=== PATIENT | female | born 1955 | race Caucasian/White ===

== ENCOUNTER 2016-11-20 16:49 | Observation (INO) | payer BC ==
--- NOTE | 2016-11-20 17:04 | ED PDOC ---
HPI:STROKE - Time Time: 17:02 - Historian Historian: Patient - Chief Complaint Chief Complaint: Numbness (Left side of face started this AM at 10. No peripheral weakness. Also c/o left arm numbness. Denies chest pain.) - Onset Date: 11/20/16 Time: 10:00 Onset: Hours (7) - Timing Timing: Currently Symptomatic - Location Locate left: Face - Radiation Radiation: None - Severity of pain Maximum severity:: Mild Pain Scale:: 0 Severity Current: Mild Pain Scale:: 0 - Exacerbated by Exacerbated by:: Nothing - Relieved by Relieved by:: Nothing - TPA Positive for Contraindication: No Reason tPA is not being Administered: Sxs 7 hrs with improvement in left arm numbness NIHSS Stroke Scale - How Severe is the Stroke Level of Consciousness: 0=Alert LOC to Questions: 0=Both comments correct LOC to commands: 0=Obeys both correctly Best Gaze: 0=Normal Visual: 0=No visual loss Facial: 0=Normal Motor Arm - Left: 0=No drift Motor Arm - Right: 0=No drift Motor Leg - Left: 0=No drift Motor Leg - Right: 0=No drift Limb Ataxia: 0=Absent Sensory: 1=Mild to moderate loss Best Language: 0=No aphasia Dysarthia: 0=Normal articulation Extinction & Inattention (Neglect): 0=Normal, no object Score: 1 rTPA Inclusion/Exclusion - Refusal of Treatment Patient Refused Treatment: No - Inclusion Criteria for Altepase Patient is 18 years or Older: Yes The Clinical Diagnosis of Ischemic Stroke That is Causing a Potentially Disabling Neurological Deficit: No Time of Onset is Well Established to be Less Than 270 Minute Before Treatment Would Begin: No Risk/Benefit Discussed With Patient/Family Member Present: No Past Medical History Vital Signs: Last Vital Signs Temp 98.2 F 11/20/16 16:51 Pulse 81 11/20/16 16:51 Resp 16 11/20/16 16:51 BP 150/93 H 11/20/16 16:51 Pulse Ox 100 11/20/16 16:51 - Medical History PMH: No Chronic Diseases - Family History Family History: States: Unknown Family Hx - Immunization History Hx Tetanus Toxoid Vaccination: No Hx Influenza Vaccination: No Hx Pneumococcal Vaccination: No - Home Medications Home Medications: Ambulatory Orders Medication Instructions Recorded No Known Home Med 08/03/15 - Allergies Allergies/Adverse Reactions: Allergies Allergy/AdvReac Type Severity Reaction Status Date / Time No Known Allergies Allergy Verified 08/03/15 09:58 Review of Systems ROS Statement: Except As Marked, All Systems Reviewed And Found Negative Neurological: Positive for: Numbness (Left facial and left arm) Physical Exam - Reviewed Nursing Documentation Reviewed: Yes Vital Signs Reviewed: Yes - Physical Exam Appears: Positive for: Non-toxic, No Acute Distress Head Exam: Positive for: ATRAUMATIC, NORMAL INSPECTION, NORMOCEPHALIC Skin: Positive for: Normal Color, Warm, DRY Eye Exam: Positive for: EOMI, Normal appearance, PERRL ENT: Positive for: Normal ENT Inspection Neck: Positive for: Normal, Painless ROM Cardiovascular/Chest: Positive for: Regular Rate, Rhythm Respiratory: Positive for: CNT, Normal Breath Sounds Gastrointestinal/Abdominal: Positive for: Normal Exam, Bowel Sounds, Soft Back: Positive for: Normal Inspection Extremity: Positive for: Normal ROM Neurologic/Psych: Positive for: Alert, Oriented, Motor/Sensory Deficits (mild decreased sensation left side of face. No motor deficits) - Laboratory Results Result Diagrams: 11/20/16 17:15 11/20/16 17:15 - ECG O2 Sat by Pulse Oximetry: 100 Disposition - Clinical Impression Clinical Impression: Transient cerebral ischemia - Patient ED Disposition Is Patient to be Admitted: Yes - Disposition Disposition Time: 18:03 Condition: FAIR - Pt Status Changed To: Hospital Disposition Of: Observation - POA Present On Arrival: None
--- NOTE | 2016-11-20 17:26 | CT ---
PROCEDURE: CT HEAD WITHOUT CONTRAST. HISTORY: code stroke COMPARISON: None available. TECHNIQUE: Axial computed tomography images were obtained through the head/brain without intravenous contrast. Coronal and sagittal reconstructed images. Radiation dose: Total exam DLP = 763.08 MGy-cm. This CT exam was performed using one or more of the following dose reduction techniques: Automated exposure control, adjustment of the mA and/or kV according to patient size, and/or use of iterative reconstruction technique. FINDINGS: HEMORRHAGE: No intracranial hemorrhage. BRAIN: No mass effect or edema. No atrophy or chronic microvascular ischemic changes. VENTRICLES: Unremarkable. No hydrocephalus. CALVARIUM: Unremarkable. PARANASAL SINUSES: Unremarkable as visualized. No significant inflammatory changes. MASTOID AIR CELLS: Unremarkable as visualized. No inflammatory changes. OTHER FINDINGS: None. IMPRESSION: No acute intracranial abnormalities. No significant findings to account for the clinical presentation. Code stroke protocol: Study completed 17:08. Radiologist notified 17:21. Results conveyed verbally at 17:24. Discussed directly with Dr. Burgess attending physician in the emergency department. Interpretation finalized and available for review 17:25. November 20, 2016.
[2016-11-20 17:28] LABS: BASO % 0.7 % (0.0-2.0); EOS % 0.4 % (0.0-4.0); HEMATOCRIT 40.3 % (34.0-47.0); LYMPH # 1.1 K/uL (1.0-4.3); LYMPH % 26.1 % (20.0-40.0); MEAN CELL VOLUME 88.4 fl (81.0-99.0); MEAN CORPUSCULAR HEMOGLOBIN 29.5 pg (27.0-31.0); MEAN CORPUSCULAR HGB CONC 33.3 g/dL (33.0-37.0); MEAN PLATELET VOLUME 7.3 fl (7.2-11.7); MONO # 0.3 K/uL (0.0-0.8); MONO % 7.7 % (0.0-10.0); NEUT # 2.7 K/uL (1.8-7.0); NEUT % 65.1 % (50.0-75.0); RED CELL DISTRIBUTION WIDTH 12.7 % (11.5-14.5); WHITE BLOOD COUNT 4.2 K/uL (4.8-10.8)
[2016-11-20 17:40] LABS: ALB/GLOB RATIO 1.4 (1.0-2.1); ALKALINE PHOSPHATASE 67 U/L (38-126); ALT/SGPT 21 U/L (9-52); AST/SGOT 29 U/L (14-36); BILIRUBIN,TOTAL 0.6 mg/dl (0.2-1.3); BLOOD UREA NITROGEN 10 mg/dl (7-17); CALCIUM 9.4 mg/dL (8.4-10.2); CARBON DIOXIDE 22 mmol/L (22-30); CHLORIDE 104 mmol/L (98-107); CHOLESTEROL 224 mg/dL (0-199); GFR AFRICAN-AMERICAN > 60; GLUCOSE,RANDOM 111 mg/dL (65-105); POTASSIUM 3.9 MMOL/L (3.6-5.0); SODIUM 143 mmol/l (132-148); TOTAL PROTEIN 7.8 G/DL (6.3-8.2)
[2016-11-20 17:47] LABS: PARTIAL THROMBOPLASTIN TIME 28.5 SECONDS (23.3-32.5)
[2016-11-21 07:18] LABS: CHOLESTEROL 219 mg/dL (0-199)
--- NOTE | 2016-11-21 10:22 | RAD ---
HISTORY: cva COMPARISON: No prior. FINDINGS: LUNGS: No active pulmonary disease. PLEURA: No significant pleural effusion identified, no pneumothorax apparent. CARDIOVASCULAR: Normal. OSSEOUS STRUCTURES: No significant abnormalities. VISUALIZED UPPER ABDOMEN: Normal. OTHER FINDINGS: None. IMPRESSION: No active disease.
--- NOTE | 2016-11-21 11:31 | MRI ---
PROCEDURE: MRI BRAIN WITHOUT CONTRAST HISTORY: TIA COMPARISON: None. TECHNIQUE: Multiplanar, multisequence MR images of the brain were obtained without intravenous contrast enhancement. FINDINGS: HEMORRHAGE: None DWI: No evidence of an acute or early subacute infarction. BRAIN PARENCHYMA: No mass effect or edema. No atrophy or chronic microvascular ischemic changes. VENTRICLES: Unremarkable. No hydrocephalus. CRANIUM: Unremarkable. ORBITS: Grossly unremarkable. PARANASAL SINUSES/MASTOIDS: Clear VASCULAR SYSTEM: Skull base flow voids intact. OTHER FINDINGS: None. IMPRESSION: Unremarkable non contrast enhanced MRI of the brain.
--- NOTE | 2016-11-21 11:46 | MRI ---
PROCEDURE: Magnetic Resonance Angiography Brain HISTORY: tia COMPARISON: None available. TECHNIQUE: 3D time of flight MR angiography of the intracranial arteries was performed. Rotating maximum intensity projection images were generated. FINDINGS: INTERNAL CEREBRAL ARTERIES: Unremarkable. The skull base, petrous, cavernous and supraclinoid segments are bilaterally widely patient. ANTERIOR CEREBRAL ARTERIES: Unremarkable. A1 and A2 segments are widely patent. Smaller distal branches unremarkable, as visualized. MIDDLE CEREBRAL ARTERIES: Unremarkable. M1 and M2 segments are widely patent. Perisylvian branches grossly symmetric. POSTERIOR CIRCULATION: Basilar Artery: Unremarkable. Distal Vertebral Arteries: Unremarkable. Posterior Cerebral Arteries: Unremarkable. Posterior Inferior Cerebellar Arteries: Unremarkable. ANEURYSM/ VASCULAR MALFORMATIONS: None. OTHER FINDINGS: None. IMPRESSION: Unremarkable MR angiography of the brain.
--- NOTE | 2016-11-21 15:32 | CP.PCM.CON ---
History of Present Illness - History of Present Illness History of Present Illness: Mrs. Amador is a 61-year-old woman who states that she was told when she was younger that she has an abnormal heart rhythm, but no other medical problems, who presented to the ED yesterday afternoon after complaints of left face and arm numbness that started around lunch time and resolved within a few hours. The numbness on the left side of the face started after her arms had a strange "tingly" and cold feeling. Initially, it was both arms, but then it moved to predominantly the left arm throughout. She also had a feeling of nausea at the time. She denied any headache, visual changes, chest pain, weakness, muscle pain or tenderness, difficulty with ambulation, abdominal pain or changes in mood. Review of Systems - Review of Systems All systems: reviewed and no additional remarkable complaints except Past Patient History - Past Medical History & Family History Past Medical History?: Yes - Past Social History Smoking Status: Former Smoker - CARDIAC Hx Cardiac Disorders: No - PULMONARY Hx Respiratory Disorders: No - NEUROLOGICAL Hx Neurological Disorder: No - HEENT Hx HEENT Problems: No - RENAL Hx Chronic Kidney Disease: No - ENDOCRINE/METABOLIC Hx Endocrine Disorders: No - HEMATOLOGICAL/ONCOLOGICAL Hx Blood Disorders: No - INTEGUMENTARY Hx Dermatological Problems: No - MUSCULOSKELETAL/RHEUMATOLOGICAL Hx Musculoskeletal Disorders: No Hx Falls: No - GASTROINTESTINAL Hx Gastrointestinal Disorders: No - GENITOURINARY/GYNECOLOGICAL Hx Genitourinary Disorders: No - PSYCHIATRIC Hx Psychophysiologic Disorder: No Hx Substance Use: No - SURGICAL HISTORY Hx Surgeries: Yes Other/Comment: left breast cyst removal - ANESTHESIA Hx Anesthesia: Yes Hx Anesthesia Reactions: No Hx Malignant Hyperthermia: No Has any member of the family had a problem w/ anesthesia?: No Meds Allergies/Adverse Reactions: Allergies Allergy/AdvReac Type Severity Reaction Status Date / Time No Known Allergies Allergy Verified 08/03/15 09:58 - Medications Medications: Current Medications Acetaminophen (Tylenol 325mg Tab) 650 mg PO Q6 PRN PRN Reason: Pain, moderate (4-7) Last Admin: 11/20/16 20:30 Dose: 650 mg Aspirin (Aspirin) 325 mg PO DAILY LALITHA Last Admin: 11/21/16 08:39 Dose: 325 mg Physical Exam - Constitutional Appears: Well - Head Exam Head Exam: ATRAUMATIC, NORMAL INSPECTION, NORMOCEPHALIC - Eye Exam Eye Exam: EOMI, Normal appearance, PERRL - ENT Exam ENT Exam: Mucous Membranes Moist, Normal Exam - Respiratory Exam Respiratory Exam: Clear to Auscultation Bilateral, NORMAL BREATHING PATTERN - Cardiovascular Exam Cardiovascular Exam: REGULAR RHYTHM - GI/Abdominal Exam GI & Abdominal Exam: Normal Bowel Sounds, Soft. absent: Tenderness - Neurological Exam Neurological exam: Alert, CN II-XII Intact, Normal Gait, Oriented x3, Reflexes Normal - Expanded Neurological Exam Expanded Patient oriented to: person, place, time Cranial nerves: EOM's Intact: Normal, Facial Palsey w/Forehead Movement: Normal , Facial Palsey w/o Forehead Movement: Normal, Nystagmus: Normal Cerebellar Function: Finger to Nose: Normal, Heel to Huff: Normal, Romberg: Normal Upper motor neuron: Babinski Sign: Normal Sensory exam: Lower Extremity 2 Point Discrimination: Normal, Lower Extremity Light Touch: Normal, Lower Extremity Pin Prick: Normal, Lower Extremity Temperature: Normal, Upper Extremity 2 Point Discrimination: Normal, Upper Extremity Light Touch: Normal, Upper Extremity Pin Prick: Normal, Upper Extremity Temperature: Normal Neuro motor strength exam: Left Upper Extremity: 5, Right Upper Extremity: 5, Left Lower Extremity: 5, Right Lower Extremity: 5 DTR: Achilles Tendon Left: 2+, Achilles Tendon Right: 2+, Bicep Left: 2+, Bicep Right: 2+, Brachioradialis Left: 2+, Brachioradialis Right: 2+, Patellar Left: 2 +, Patellar Right: 2+, Tricep Left: 2+, Tricep Right: 2+ - Psychiatric Exam Psychiatric exam: Normal Affect, Normal Mood Results - Vital Signs Recent Vital Signs: Last Vital Signs Temp 97.5 F L 11/21/16 12:24 Pulse 68 11/21/16 12:24 Resp 18 11/21/16 12:24 BP 130/77 11/21/16 12:24 Pulse Ox 99 11/21/16 12:24 - Labs Result Diagrams: 11/20/16 17:15 11/20/16 17:15 Labs: Laboratory Results - last 24 hr 11/20/16 11/20/16 11/21/16 18:39 21:00 06:25 Hemoglobin A1c 5.9 Triglycerides 67 Cholesterol 219 H LDL Cholesterol Direct 103 HDL Cholesterol 72 H Blood Type Confirm B POSITIVE - Imaging and Cardiology MRI - head Status: Image reviewed by me, Report reviewed by me (Mild scattered T2 hyperintensities, no acute findings. ) Assessment & Plan (1) TIA (transient ischemic attack) Assessment and Plan: The patient is a 61-year-old woman who developed the sudden onset of left arm and face numbness lasting several hours that now completely resolved. Will continue the TIA work-up, start aspirin 81 mg daily, statin and I recommend: 1. Telemetrey 2. Carotid Doppler 3. Permissive hypertension for 1st 24-36 hours 4. Echocardiogram with bubble study 5. DVT Px 6. PT/OT eval. Status: Acute
--- NOTE | 2016-11-21 19:55 | CARD ---
APPROVED REPORT EXAM: Two-dimensional and M-mode echocardiogram with Doppler and color Doppler. Other Information Quality : GoodRhythm : NSR INDICATION CVA/TIA 2D DIMENSIONS IVSd1.00 (0.7-1.1cm)LVDd3.65 (3.9-5.9cm) PWd0.91 (0.7-1.1cm)IVSs1.30 (0.8-1.2cm) LVDs2.07 (2.5-4.0cm)FS (%) 43.3 % PWs1.14 (0.8-1.2cm)LVEF (%)55.0 (>50%) M-Mode DIMENSIONS Left Atrium (MM)2.58 (2.5-4.0cm)IVSd0.79 (0.7-1.1cm) Aortic Root3.13 (2.2-3.7cm)LVDd5.10 (4.0-5.6cm) Aortic Cusp Exc.2.36 (1.5-2.0cm)PWd0.82 (0.7-1.1cm) IVSs1.10 cmFS (%) 39 % LVDs3.13 (2.0-3.8cm)PWs1.19 cm Mitral Valve MV E Fdgijgji50.9cm/sMV DECEL [id number] A Dtajqlqh49.8cm/s MV [id number]/A ratio1.3MVA (PHT)4.52cm2 TDI Lateral E' Peak V9.86cm/sMedial E' Peak V9.04cm/sE/Lateral E'7.2 E/Medial E'7.8 Pulmonary Valve PV Peak Mqpfoewa14.3cm/s LEFT VENTRICLE The left ventricle is normal size. There is normal left ventricular wall thickness. The left ventricular function is normal. The left ventricular ejection fraction is within the normal range. There is normal LV segmental wall motion. The left ventricular diastolic function is normal. RIGHT VENTRICLE The right ventricle is normal size. There is normal right ventricular wall thickness. The right ventricular systolic function is normal. ATRIA The left atrium size is normal. The right atrium size is normal. AORTIC VALVE The aortic valve is mildly thickened. There is trace aortic regurgitation. There is no aortic valvular stenosis. MITRAL VALVE The mitral valve is mildly thickened. There is no mitral valve stenosis. Mitral regurgitation is trace. TRICUSPID VALVE The tricuspid valve is normal in structure and function. There is no tricuspid valve regurgitation noted. PULMONIC VALVE The pulmonary valve is normal in structure and function. There is no pulmonic valvular regurgitation. GREAT VESSELS The aortic root is normal in size. The IVC is normal in size and collapses >50% with inspiration. PERICARDIAL EFFUSION There is a trace loculated anterior pericardial effusion. <Conclusion> The left ventricle is normal size. There is normal left ventricular wall thickness. The left ventricular function is normal. The left ventricular ejection fraction is within the normal range. There is normal LV segmental wall motion. The left ventricular diastolic function is normal.
--- NOTE | 2016-11-21 21:30 | CARD ---
APPROVED REPORT EKG Measurement Heart [id number] <Conclusion> Normal sinus rhythm Minimal voltage criteria for LVH, may be normal variant Borderline ECG
--- NOTE | 2016-11-21 22:18 | CP.PCM.HP ---
Past Patient History - Past Medical History & Family History Past Medical History?: Yes - Past Social History Smoking Status: Former Smoker - CARDIAC Hx Cardiac Disorders: No - PULMONARY Hx Respiratory Disorders: No - NEUROLOGICAL Hx Neurological Disorder: No - HEENT Hx HEENT Problems: No - RENAL Hx Chronic Kidney Disease: No - ENDOCRINE/METABOLIC Hx Endocrine Disorders: No - HEMATOLOGICAL/ONCOLOGICAL Hx Blood Disorders: No - INTEGUMENTARY Hx Dermatological Problems: No - MUSCULOSKELETAL/RHEUMATOLOGICAL Hx Musculoskeletal Disorders: No Hx Falls: No - GASTROINTESTINAL Hx Gastrointestinal Disorders: No - GENITOURINARY/GYNECOLOGICAL Hx Genitourinary Disorders: No - PSYCHIATRIC Hx Psychophysiologic Disorder: No Hx Substance Use: No - SURGICAL HISTORY Hx Surgeries: Yes Other/Comment: left breast cyst removal - ANESTHESIA Hx Anesthesia: Yes Hx Anesthesia Reactions: No Hx Malignant Hyperthermia: No Has any member of the family had a problem w/ anesthesia?: No Meds Allergies/Adverse Reactions: Allergies Allergy/AdvReac Type Severity Reaction Status Date / Time No Known Allergies Allergy Verified 08/03/15 09:58 Results - Vital Signs Recent Vital Signs: Last Vital Signs Temp 98.5 F 11/21/16 19:23 Pulse 74 11/21/16 19:23 Resp 20 11/21/16 19:23 BP 134/84 11/21/16 19:23 Pulse Ox 99 11/21/16 19:23 - Labs Result Diagrams: 11/20/16 17:15 11/20/16 17:15 Labs: Laboratory Results - last 24 hr 11/20/16 11/21/16 18:39 06:25 Hemoglobin A1c 5.9 Triglycerides 67 Cholesterol 219 H LDL Cholesterol Direct 103 HDL Cholesterol 72 H
[2016-11-22 08:56] VITALS: RESP 18; TEMP 97.9
[2016-11-22 11:14] VITALS: BP 143/78; PULSE 72; O2SAT 100
--- NOTE | 2016-11-22 17:58 | CP.PCM.DIS ---
Provider - Provider Date of Admission: 11/20/16 18:04 Attending physician: Braden Mendez MD Time Spent in preparation of Discharge (in minutes): 25 Hospital Course - Lab Results Lab Results: Most Recent Lab Values WBC 4.2 K/uL (4.8-10.8) L 11/20/16 17:15 RBC 4.56 Mil/uL (3.80-5.20) 11/20/16 17:15 Hgb 13.4 g/dL (12.0-16.0) 11/20/16 17:15 Hct 40.3 % (34.0-47.0) 11/20/16 17:15 MCV 88.4 fl (81.0-99.0) 11/20/16 17:15 MCH 29.5 pg (27.0-31.0) 11/20/16 17:15 MCHC 33.3 g/dL (33.0-37.0) 11/20/16 17:15 RDW 12.7 % (11.5-14.5) 11/20/16 17:15 Plt Count 282 K/uL (130-400) 11/20/16 17:15 MPV 7.3 fl (7.2-11.7) 11/20/16 17:15 Neut % (Auto) 65.1 % (50.0-75.0) 11/20/16 17:15 Lymph % (Auto) 26.1 % (20.0-40.0) 11/20/16 17:15 [place] % (Auto) 7.7 % (0.0-10.0) 11/20/16 17:15 Eos % (Auto) 0.4 % (0.0-4.0) 11/20/16 17:15 Baso % (Auto) 0.7 % (0.0-2.0) 11/20/16 17:15 Neut # 2.7 K/uL (1.8-7.0) 11/20/16 17:15 Lymph # 1.1 K/uL (1.0-4.3) 11/20/16 17:15 [place] # 0.3 K/uL (0.0-0.8) 11/20/16 17:15 Eos # 0.0 K/uL (0.0-0.7) 11/20/16 17:15 Baso # 0.0 K/uL (0.0-0.2) 11/20/16 17:15 PT 11.5 SECONDS (9.6-11.2) H 11/20/16 17:15 INR 1.11 (0.92-1.08) H 11/20/16 17:15 APTT 28.5 SECONDS (23.3-32.5) 11/20/16 17:15 Sodium 143 mmol/l (132-148) 11/20/16 17:15 Potassium 3.9 MMOL/L (3.6-5.0) 11/20/16 17:15 Chloride 104 mmol/L (98-107) 11/20/16 17:15 Carbon Dioxide 22 mmol/L (22-30) 11/20/16 17:15 Anion Gap 20 (10-20) 11/20/16 17:15 BUN 10 mg/dl (7-17) 11/20/16 17:15 Creatinine 0.7 mg/dL (0.7-1.2) 11/20/16 17:15 Est GFR ( Amer) > 60 11/20/16 17:15 Est GFR (Non-Af Amer) > 60 11/20/16 17:15 POC Glucose (mg/dL) 102 mg/dL (65-110) 11/20/16 17:36 Random Glucose 111 mg/dL (65-105) H 11/20/16 17:15 Hemoglobin A1c 5.9 % (4.2-6.5) 11/20/16 18:39 Calcium 9.4 mg/dL (8.4-10.2) 11/20/16 17:15 Total Bilirubin 0.6 mg/dl (0.2-1.3) 11/20/16 17:15 AST 29 U/L (14-36) 11/20/16 17:15 ALT 21 U/L (9-52) 11/20/16 17:15 Alkaline Phosphatase 67 U/L (38-126) 11/20/16 17:15 Troponin I < 0.0120 ng/mL (0.00-0.120) 11/20/16 17:15 Total Protein 7.8 G/DL (6.3-8.2) 11/20/16 17:15 Albumin 4.6 g/dL (3.5-5.0) 11/20/16 17:15 Globulin 3.2 gm/dL (2.2-3.9) 11/20/16 17:15 Albumin/Globulin Ratio 1.4 (1.0-2.1) 11/20/16 17:15 Triglycerides 67 mg/DL (0-149) 11/21/16 06:25 Cholesterol 219 mg/dL (0-199) H 11/21/16 06:25 LDL Cholesterol Direct 103 mg/dL (0-129) 11/21/16 06:25 HDL Cholesterol 72 MG/DL (30-70) H 11/21/16 06:25 Blood Type B POSITIVE 11/20/16 17:15 Blood Type Confirm B POSITIVE 11/20/16 21:00 Antibody Screen Negative 11/20/16 17:15 BBK History Checked No verified bt 11/20/16 17:15 Discharge Exam - Head Exam Head Exam: ATRAUMATIC, NORMAL INSPECTION, NORMOCEPHALIC Discharge Plan - Discharge Medications Prescriptions: Aspirin [Adult Low Dose Aspirin EC] 81 mg PO DAILY #30 tablet. Atorvastatin [Lipitor] 20 mg PO DAILY #30 tab - Follow Up Plan Condition: FAIR Disposition: HOME/ ROUTINE Instructions: Transient Ischemic Attack (DC) Referrals: Robert Yates MD [Medical Doctor] - Braden Mendez MD [Staff Provider] -
== END 2016-11-22 13:30 | disposition home or self-care (01) ==
LOC: H.ER 16:49 → H.ERHOLD 18:04 → H.TEL 21:56
PROVIDERS: ADMIT Internal Medicine; ATTEND Internal Medicine
DX: G45.9 Transient cerebral ischemic attack, unspecified (principal); Z87.891 Personal history of nicotine dependence
CPT/HCPCS: 36415; 70450; 70544; 70551; 71010; 80053; 80061; 82948; 83036; 84484; 85025; 85610; 85730; 86850; 86900; 93005; 93306; 99283; G0378